=== PATIENT | male | born 1985 | race Caucasian/White ===

== ENCOUNTER 2018-12-13 22:01 | Emergency (ER) | payer SELFPAY ==
[2018-12-13] MEDS ORDERED: Ondansetron 4 MG Tab.DIS PO ONE (22:24)
--- NOTE | 2018-12-13 22:26 | EDM.PDOC ---
ED HPI GENERAL MEDICAL PROBLEM - General Chief Complaint: Respiratory Problem Stated Complaint: FLU LIKE SYMPTOMS Time Seen by Provider: 12/13/18 22:19 - History of Present Illness INITIAL COMMENTS - FREE TEXT/NARRATIVE: HISTORY AND PHYSICAL: History of present illness: The patient is a 33-year-old male who presents with history of being exposed to people with influenza and starting to have a cough last evening which was nonproductive. Today he started having left ear pain and started having a fever up to 101 this evening. He took Tylenol and Motrin prior to coming here and was on the way to the ED for evaluation. On arrival here in the ED he felt very nauseated and had an emesis while I was evaluating him of pinkish orange fluid. He said he did take NyQuil and DayQuil earlier today. He has been tolerating fluid up until this point and actually says he feels significantly improved now that he has vomited. He has no abdominal pain no diarrhea and no other GI history. Review of systems: As per history of present illness and below otherwise all systems reviewed and negative. Past medical history: As per history of present illness and as reviewed below otherwise noncontributory. Surgical history: As per history of present illness and as reviewed below otherwise noncontributory. Social history: No reported history of drug or alcohol abuse. Family history: As per history of present illness and as reviewed below otherwise noncontributory. Physical exam: General: Well-developed well-nourished man who is nontoxic and vital signs are noted by me HEENT: Atraumatic, normocephalic, pupils reactive, negative for conjunctival pallor or scleral icterus, mucous membranes moist, throat clear of exudates but there is some erythema posteriorly in the oropharynx, neck supple, nontender, trachea midline. TM on the right is within normal limits with a good light reflex and the TM on the left, the ear that is causing him the pain, is unable to be visualized due to severely impacted cerumen. Lungs: Clear to auscultation, breath sounds equal bilaterally, chest nontender. No wheezing or stridor Heart: S1S2, regular, negative for clicks, rubs, or JVD. Abdomen: Soft, nondistended, nontender. NABS Pelvis: Stable nontender. Genitourinary: Deferred. Rectal: Deferred. Extremities: Atraumatic, negative for cords or calf pain. Neurovascular unremarkable. Neuro: Awake, alert, oriented. Cranial nerves II through XII unremarkable. Cerebellum unremarkable. Motor and sensory unremarkable throughout. Exam nonfocal. Diagnostics: CBC CMP influenza rapid strep chest x-ray Therapeutics: Zofran ODT The patient has not had any nausea or vomiting here and says he feels improved. He is aware of his lab tests and a written him a prescription for Tamiflu. Impression: Influenza A Definitive disposition and diagnosis as appropriate pending reevaluation and review of above. - Related Data Allergies Allergy/AdvReac Type Severity Reaction Status Date / Time No Known Allergies Allergy Verified 12/13/18 22:24 Home Meds: Home Meds . [No Known Home Meds] 12/13/18 [History] ED ROS GENERAL - Review of Systems Review Of Systems: ROS reveals no pertinent complaints other than HPI. ED EXAM, GENERAL - Physical Exam Exam: See Below (See dictation) Course - Vital Signs Last Recorded V/S: Last Vital Signs Temp 37.2 C 12/13/18 22:19 Pulse 115 H 12/13/18 22:19 Resp 18 12/13/18 22:19 BP 119/59 L 12/13/18 22:19 Pulse Ox 95 12/13/18 22:19 - Orders/Labs/Meds Orders: Active Orders 24 hr Category Date Time Status CULTURE STREP A CONFIRMATION [RM] Stat Lab 12/13/18 22:31 Results STREP SCRN A RAPID W CULT CONF [RM] Stat Lab 12/13/18 22:31 Results Labs: Laboratory Tests 12/13/18 12/13/18 Range/Units 22:37 22:37 WBC 7.09 (4.0-11.0) K/uL RBC 4.91 (4.50-5.90) M/uL Hgb 15.3 (13.0-17.0) g/dL Hct 44.1 (38.0-50.0) % MCV 89.8 (80.0-98.0) fL MCH 31.2 (27.0-32.0) pg MCHC 34.7 (31.0-37.0) g/dL RDW Std Deviation 45.8 (28.0-62.0) fl RDW Coeff of Rosenda 14 (11.0-15.0) % Plt Count 173 (150-400) K/uL MPV 10.40 (7.40-12.00) fL Neut % (Auto) 73.6 (48.0-80.0) % Lymph % (Auto) 10.7 L (16.0-40.0) % Kinney % (Auto) 15.0 (0.0-15.0) % Eos % (Auto) 0.4 (0.0-7.0) % Baso % (Auto) 0.3 (0.0-1.5) % Neut # (Auto) 5.2 (1.4-5.7) K/uL Lymph # (Auto) 0.8 (0.6-2.4) K/uL Kinney # (Auto) 1.1 H (0.0-0.8) K/uL Eos # (Auto) 0.0 (0.0-0.7) K/uL Baso # (Auto) 0.0 (0.0-0.1) K/uL Nucleated RBC % 0.0 /100WBC Nucleated RBCs # 0 K/uL Sodium 139 (136-148) mmol/L Potassium 3.8 (3.5-5.1) mmol/L Chloride 103 (98-107) mmol/L Carbon Dioxide 23.1 (21.0-32.0) mmol/L BUN 10 (7.0-18.0) mg/dL Creatinine 1.3 (0.8-1.3) mg/dL Est Cr Clr Drug Dosing 86.88 mL/min Estimated GFR (MDRD) > 60.0 ml/min Glucose 111 H (74-106) mg/dL Calcium 8.1 L (8.5-10.1) mg/dL Total Bilirubin 0.1 L (0.2-1.0) mg/dL AST 15 (15-37) IU/L ALT 32 (14-63) IU/L Alkaline Phosphatase 56 (46-116) U/L Total Protein 7.0 (6.4-8.2) g/dL Albumin 3.6 (3.4-5.0) g/dL Globulin 3.4 (2.6-4.0) g/dL Albumin/Globulin Ratio 1.1 (0.9-1.6) Meds: Medications Discontinued Medications Generic Name Dose Route Start Last Admin Trade Name Freq PRN Reason Stop Dose Admin Ondansetron HCl 4 mg 12/13/18 22:24 12/13/18 22:29 Zofran Odt PO 12/13/18 22:25 4 mg ONETIME ONE Administration Departure - Departure Time of Disposition: 23:43 Disposition: Home, Self-Care 01 Condition: Good Clinical Impression: Influenza A - Discharge Information Forms: ED Department Discharge Additional Instructions: The following information is given to patients seen in the emergency department who are being discharged to home. This information is to outline your options for follow-up care. We provide all patients seen in our emergency department with a follow-up referral. The need for follow-up, as well as the timing and circumstances, are variable depending upon the specifics of your emergency department visit. If you don't have a primary care physician on staff, we will provide you with a referral. We always advise you to contact your personal physician following an emergency department visit to inform them of the circumstance of the visit and for follow-up with them and/or the need for any referrals to a consulting specialist. The emergency department will also refer you to a specialist when appropriate. This referral assures that you have the opportunity for followup care with a specialist. All of these measure are taken in an effort to provide you with optimal care, which includes your followup. Under all circumstances we always encourage you to contact your private physician who remains a resource for coordinating your care. When calling for followup care, please make the office aware that this follow-up is from your recent emergency room visit. If for any reason you are refused follow-up, please contact the [facility] emergency department at and ask to speak to the emergency department charge nurse. [facility] Primary care- Internal Medicine and Family [address] [address] Please use [id number] cough meds as you choose and take Tylenol and or ibuprofen for fevers as we discussed. He'll your prescription for Tamiflu as this may shorten the duration of your symptoms.. Please call and schedule a follow-up appointment in the clinic and return to ER as needed and as discussed - My Orders Last 24 Hours: My Active Orders 12/13/18 22:31 CULTURE STREP A CONFIRMATION [RM] Stat STREP SCRN A RAPID W CULT CONF [RM] Stat - Assessment/Plan Last 24 Hours: My Active Orders 12/13/18 22:31 CULTURE STREP A CONFIRMATION [RM] Stat STREP SCRN A RAPID W CULT CONF [RM] Stat
[2018-12-13 23:05] LABS: CHLORIDE,CL 103 mmol/L (98-107); SODIUM,NA 139 mmol/L (136-148)
--- NOTE | 2018-12-13 23:17 | CR ---
INDICATION: Cough, vomiting TECHNIQUE: Chest radiograph 2 views COMPARISON: None FINDINGS: Mediastinum: The mediastinum is normal in appearance. The heart silhouette is normal in size and morphology. Lung: Both lungs are unremarkable in appearance. No sign of pleural effusion seen. No pneumothorax is identified. Musculoskeletal: Unremarkable for age. IMPRESSION: 1. No acute cardiopulmonary disease is seen. Dictated by: Tone Aguirre MD @ 12/13/2018 23:15:38 (Electronically Signed)
== END 2018-12-13 23:55 | disposition home or self-care (01) ==
LOC: MW.ED 22:01
DX: J10.1 Influenza due to other identified influenza virus with other respiratory manifestations (principal)
CPT/HCPCS: 36415; 71046; 80053; 85025; 87081; 87804; 87880; 99284; A9270

== ENCOUNTER 2019-04-13 09:14 | Emergency (ER) | payer SELFPAY ==
[2019-04-13] MEDS ORDERED: Sodium Chloride 0.9% 10 ML Syringe FLUSH PRN (09:48)
[2019-04-13] MEDS ORDERED: Sodium Chloride 0.9% 2.5 ML Syringe FLUSH PRN (09:48)
--- NOTE | 2019-04-13 09:53 | EDM.PDOC ---
ED HPI GENERAL MEDICAL PROBLEM - General Chief Complaint: Abdominal Pain Stated Complaint: NEEDS CT AND LABS REF FROM [place] Time Seen by Provider: 04/13/19 09:41 - History of Present Illness INITIAL COMMENTS - FREE TEXT/NARRATIVE: HISTORY AND PHYSICAL: History of present illness: The patient is a 33-year-old male who presents from [facility] after he went there to be seen for complaints of numbness at his right abdominal wall and flank and was sent here as they felt he might need imaging and blood work. The patient says that his symptoms started about a week ago and he had some tingling and numbness at the roof of his mouth which is now gone and then he started feeling numbness at the skin area of his right flank which is now radiating around to his right upper quadrant. He says it does not go below his waist line and it starts at his lower rib cage. It does not cross to the left side and he has no back pain no abdominal pain no fevers chills nausea vomiting cough or upper respiratory symptoms and no chest pain or shortness of breath. He says the area is not painful or burning and he has not noticed any rashes. He has no weakness in his upper extremities and no weakness overall. He says he has had absolutely no discomfort with this and has had no recent trauma. He says he is doing all of his activities normally and try to make the clinic appointment and be seen as he did not think this was an emergent problem but came here at their assistance. The patient says that the symptoms do come and go and that there is no pain no burning sensation no rash no skin changes and no other symptomatology associated with it other than the feeling that the skin is "asleep" Review of systems: As per history of present illness and below otherwise all systems reviewed and negative. Past medical history: As per history of present illness and as reviewed below otherwise noncontributory. Surgical history: As per history of present illness and as reviewed below otherwise noncontributory. Social history: No reported history of drug or alcohol abuse. Family history: As per history of present illness and as reviewed below otherwise noncontributory. Physical exam: General: Well-developed well-nourished man who is nontoxic and vital signs are noted by me. He moves easily in the ED without distress HEENT: Atraumatic, normocephalic, pupils reactive, negative for conjunctival pallor or scleral icterus, mucous membranes moist, throat clear, neck supple, nontender, trachea midline. Lungs: Clear to auscultation, breath sounds equal bilaterally, chest nontender. There are no defects or deformities appreciated and no skin lesions or rashes are appreciated Heart: S1S2, regular, negative for clicks, rubs, or JVD. Abdomen: Soft, nondistended, nontender. Negative for masses or hepatosplenomegaly. Negative for costovertebral tenderness. Pelvis: Stable nontender. Genitourinary: Deferred. Rectal: Deferred. Extremities: Atraumatic, negative for cords or calf pain. Neurovascular unremarkable. Full range of motion without defects or deficits Neuro: Awake, alert, oriented. Cranial nerves II through XII unremarkable. Cerebellum unremarkable. Motor and sensory unremarkable throughout with exception of the skin at the right flank and right upper abdomen which the patient tells me has decreased sensation when compared to the left. Exam nonfocal. Back: There are no midline step-offs tenderness to get defects of the thoracic or lumbar spine and there is actually no paraspinal tenderness or abnormal lesions appreciated. Skin: Normal turgor no evidence of any rashes or lesions more specifically in the right flank and right abdominal/lower chest wall area there are no rashes or lesions and no erythema seen. Diagnostics: CBC CMP amylase lipase chest x-ray CT scan of the thoracic spine Therapeutics: IV placement 1147: TESTING results were discussed with the patient as well as the patient's provider at [facility], Dr. Lagunas. He agrees that this needs follow-up in the clinic and he is unsure of why the patient was sent over here from the clinic as he would've been happy to see the patient. We discussed doing a course of Valtrex as this may be a derivative of herpetic neuralgia without the rash of the shingles. As there are no downsides to doing some Valtrex the patient and Dr. Lagunas comfortable trialing this. If he improves this will give us a definitive diagnosis. The patient is aware that if anything changes are involved he can always return here Impression: Right flank and upper abdominal paresthesia Definitive disposition and diagnosis as appropriate pending reevaluation and review of above. - Related Data Allergies Allergy/AdvReac Type Severity Reaction Status Date / Time No Known Allergies Allergy Verified 04/13/19 09:30 Home Meds: Home Meds . [No Known Home Meds] 12/13/18 [History] Past Medical History - Past Health History Medical/Surgical History: Denies Medical/Surgical History Social & Family History - Family History Family Medical History: Noncontributory - Tobacco Use Smoking Status *Q: Current Every Day Smoker Years of Tobacco use: 15 Packs/Tins Daily: 1.5 - Caffeine Use Caffeine Use: Reports: Coffee, Energy Drinks - Recreational Drug Use Recreational Drug Use: No ED ROS GENERAL - Review of Systems Review Of Systems: ROS reveals no pertinent complaints other than HPI. ED EXAM, GENERAL - Physical Exam Exam: See Below (See dictation) Course - Vital Signs Last Recorded V/S: Last Vital Signs Temp 36.7 C 04/13/19 09:27 Pulse 79 04/13/19 09:27 Resp 18 04/13/19 09:27 BP 123/86 04/13/19 09:27 Pulse Ox 97 04/13/19 09:27 - Orders/Labs/Meds Orders: Active Orders 24 hr Category Date Time Status Chest 1V Frontal [CR] Stat Exams 04/13/19 09:49 Taken Thoracic Spine wo Cont [CT] Stat Exams 04/13/19 09:48 Taken Sodium Chloride 0.9% [Saline Flush] Med 04/13/19 09:48 Active 10 ml FLUSH ASDIRECTED PRN Sodium Chloride 0.9% [Saline Flush] Med 04/13/19 09:48 Active 2.5 ml FLUSH ASDIRECTED PRN Saline Lock Insert [OM.PC] Stat Oth 04/13/19 09:48 Ordered Medication Orders Sodium Chloride (Saline Flush) 10 ml FLUSH ASDIRECTED PRN PRN Reason: Keep Vein Open Last Admin: 04/13/19 10:00 Dose: 10 ml Sodium Chloride (Saline Flush) 2.5 ml FLUSH ASDIRECTED PRN PRN Reason: Keep Vein Open Last Admin: 04/13/19 10:01 Dose: 2.5 ml Labs: Laboratory Tests 04/13/19 04/13/19 Range/Units 09:55 09:55 WBC 9.54 (4.0-11.0) K/uL RBC 5.38 (4.50-5.90) M/uL Hgb 16.7 (13.0-17.0) g/dL Hct 48.6 (38.0-50.0) % MCV 90.3 (80.0-98.0) fL MCH 31.0 (27.0-32.0) pg MCHC 34.4 (31.0-37.0) g/dL RDW Std Deviation 45.7 (28.0-62.0) fl RDW Coeff of Rosenad 14 (11.0-15.0) % Plt Count 245 (150-400) K/uL MPV 10.10 (7.40-12.00) fL Neut % (Auto) 60.5 (48.0-80.0) % Lymph % (Auto) 27.5 (16.0-40.0) % Collier % (Auto) 8.8 (0.0-15.0) % Eos % (Auto) 3.0 (0.0-7.0) % Baso % (Auto) 0.2 (0.0-1.5) % Neut # (Auto) 5.8 H (1.4-5.7) K/uL Lymph # (Auto) 2.6 H (0.6-2.4) K/uL Collier # (Auto) 0.8 (0.0-0.8) K/uL Eos # (Auto) 0.3 (0.0-0.7) K/uL Baso # (Auto) 0.0 (0.0-0.1) K/uL Nucleated RBC % 0.0 /100WBC Nucleated RBCs # 0 K/uL Sodium 143 (136-148) mmol/L Potassium 4.4 (3.5-5.1) mmol/L Chloride 107 (98-107) mmol/L Carbon Dioxide 24.7 (21.0-32.0) mmol/L BUN 14 (7.0-18.0) mg/dL Creatinine 1.0 (0.8-1.3) mg/dL Est Cr Clr Drug Dosing 112.95 mL/min Estimated GFR (MDRD) > 60.0 ml/min Glucose 97 (74-106) mg/dL Calcium 9.1 (8.5-10.1) mg/dL Total Bilirubin 0.1 L (0.2-1.0) mg/dL AST 12 L (15-37) IU/L ALT 42 (14-63) IU/L Alkaline Phosphatase 60 (46-116) U/L Total Protein 7.2 (6.4-8.2) g/dL Albumin 4.0 (3.4-5.0) g/dL Globulin 3.2 (2.6-4.0) g/dL Albumin/Globulin Ratio 1.3 (0.9-1.6) Amylase 42 (25-115) U/L Lipase 135 (73-393) U/L Meds: Medications Generic Name Dose Route Start Last Admin Trade Name Freq PRN Reason Stop Dose Admin Sodium Chloride 10 ml 04/13/19 09:48 04/13/19 10:00 Saline Flush FLUSH 10 ml ASDIRECTED PRN Administration Keep Vein Open Sodium Chloride 2.5 ml 04/13/19 09:48 04/13/19 10:01 Saline Flush FLUSH 2.5 ml ASDIRECTED PRN Administration Keep Vein Open Departure - Departure Time of Disposition: 11:53 Disposition: Home, Self-Care 01 Condition: Good Clinical Impression: Paresthesia - Discharge Information Referrals: Chris Lagunas MD [Primary Care Provider] - Forms: ED Department Discharge Additional Instructions: The following information is given to patients seen in the emergency department who are being discharged to home. This information is to outline your options for follow-up care. We provide all patients seen in our emergency department with a follow-up referral. The need for follow-up, as well as the timing and circumstances, are variable depending upon the specifics of your emergency department visit. If you don't have a primary care physician on staff, we will provide you with a referral. We always advise you to contact your personal physician following an emergency department visit to inform them of the circumstance of the visit and for follow-up with them and/or the need for any referrals to a consulting specialist. The emergency department will also refer you to a specialist when appropriate. This referral assures that you have the opportunity for followup care with a specialist. All of these measure are taken in an effort to provide you with optimal care, which includes your followup. Under all circumstances we always encourage you to contact your private physician who remains a resource for coordinating your care. When calling for followup care, please make the office aware that this follow-up is from your recent emergency room visit. If for any reason you are refused follow-up, please contact the [facility] emergency department at and ask to speak to the emergency department charge nurse. [facility] [address] [place] [address] [place] [address] Please take medications, Valtrex, as prescribed and continue to monitor his symptoms. Please contact [facility] and schedule a follow-up appointment with your provider, specifically telling them that you're here in the ER and your provider was contacted and does want to follow you up. Return to ER as needed and as discussed. If for any reason rash appears please avoid contact with women older individuals and young children into your seen in the clinic. - My Orders Last 24 Hours: My Active Orders 04/13/19 09:48 Thoracic Spine wo Cont [CT] Stat Sodium Chloride 0.9% [Saline Flush] 10 ml FLUSH ASDIRECTED PRN Sodium Chloride 0.9% [Saline Flush] 2.5 ml FLUSH ASDIRECTED PRN Saline Lock Insert [OM.PC] Stat 04/13/19 09:49 Chest 1V Frontal [CR] Stat - Assessment/Plan Last 24 Hours: My Active Orders 04/13/19 09:48 Thoracic Spine wo Cont [CT] Stat Sodium Chloride 0.9% [Saline Flush] 10 ml FLUSH ASDIRECTED PRN Sodium Chloride 0.9% [Saline Flush] 2.5 ml FLUSH ASDIRECTED PRN Saline Lock Insert [OM.PC] Stat 04/13/19 09:49 Chest 1V Frontal [CR] Stat
[2019-04-13 10:39] LABS: BLOOD UREA NITROGEN,BUN 14 mg/dL (7.0-18.0); CARBON DIOXIDE,CO2 24.7 mmol/L (21.0-32.0); CHLORIDE,CL 107 mmol/L (98-107); GLUCOSE RANDOM 97 mg/dL (74-106); LIPASE 135 U/L (73-393); POTASSIUM,K 4.4 mmol/L (3.5-5.1); SODIUM,NA 143 mmol/L (136-148)
--- NOTE | 2019-04-13 11:57 | CT ---
EXAM DATE: 04/13/19 PATIENT'S AGE: 33 Patient: NATHAN POLK Facility: [facility] Site . Site : 1985 Study: CT-Spine Thoracic [id number]/1/2019 10:32:15 AM Ordering Physician: Jhonny Soto Final Report: INDICATION: Numbness in the waist. Comparison: None. TECHNIQUE: CT thoracic spine without intravenous contrast; coronal and sagittal reformats. FINDINGS: No evidence of fracture or dislocation involving the thoracic spine. The intervertebral disc spaces are well preserved and fail to reveal any abnormalities. No abnormal paraspinal soft tissue mass densities. No evidence of pneumothorax or pleural effusion. IMPRESSION: Negative CT thoracic spine without intravenous contrast. Please note that all CT scans at this facility use dose modulation, iterative reconstruction, and/or weight-based dosing when appropriate to reduce radiation dose to as low as reasonably achievable. Dictated by Camilla Ramirez MD @ Apr 13 2019 11:16AM Signed by: Camilla Ramirez MD @04/13/2019 11:20:14 AM (Electronic Signature) Report Signed by Proxy. [facility] HOSPITALStalin
--- NOTE | 2019-04-13 11:58 | CR ---
EXAM DATE: 04/13/19 PATIENT'S AGE: 33 Patient: NATHAN POLK Facility: [facility] Site Site : 1985 Study: XRay-Chest [id number]/1/2019 10:35:29 AM Ordering Physician: ADINA Final Report: INDICATION: Chest pain. COMPARISON: Chest radiograph December 13, 2018. TECHNIQUE: Single AP radiograph of the chest. FINDINGS: Normal size cardiac silhouette. Clear lung barber with no evidence of acute pneumonic infiltrates or CHF. No pneumothorax or pleural effusion. Impression: Negative chest. Dictated by Camilla Ramirez MD @ Apr 13 2019 11:20AM Signed by: Camilla Ramirez MD @04/13/2019 11:22:21 AM (Electronic Signature) Report Signed by Proxy. [facility]
== END 2019-04-13 12:14 | disposition home or self-care (01) ==
LOC: MW.ED 09:14
DX: R20.2 Paresthesia of skin (principal); F17.210 Nicotine dependence, cigarettes, uncomplicated
CPT/HCPCS: 36415; 71045; 71045-26; 72128; 72128-26; 80053; 82150; 83690; 85025; 99284; 99284-25

== ENCOUNTER 2019-11-10 18:41 | Emergency (ER) | payer BC, OTHER ==
--- NOTE | 2019-11-10 19:08 | EDM.PDOC ---
ED HPI GENERAL MEDICAL PROBLEM - General Chief Complaint: Lower Extremity Injury/Pain Stated Complaint: LEFT FOOT HURTS Time Seen by Provider: 11/10/19 19:06 Source of Information: Reports: Patient History Limitations: Reports: No Limitations - History of Present Illness INITIAL COMMENTS - FREE TEXT/NARRATIVE: This is a 34-year-old male who presents the emergency room with a chief complaint of left foot pain. Patient states that he has pain on the move his foot with walking. The patient denies any history of trauma. The patient denies any history of new shoes or different exercise regiment. Has no medical problems. Has no previous injuries to the foot. He has no history of gout or arthritis Duration: Day(s): (2), Recurring Location: Reports: Lower Extremity, Left Quality: Reports: Ache Severity: Moderate Worsens with: Reports: None Associated Symptoms: Reports: No Other Symptoms left foot Pain Score (Numeric/FACES): 4 - Related Data Allergies Allergy/AdvReac Type Severity Reaction Status Date / Time No Known Allergies Allergy Verified 11/10/19 19:00 Home Meds: Home Meds . [No Known Home Meds] 12/13/18 [History] Past Medical History - Past Health History Medical/Surgical History: Denies Medical/Surgical History Social & Family History - Family History Family Medical History: Noncontributory - Tobacco Use Smoking Status *Q: Current Every Day Smoker Years of Tobacco use: 15 Packs/Tins Daily: 1.5 - Caffeine Use Caffeine Use: Reports: Coffee, Energy Drinks - Recreational Drug Use Recreational Drug Use: No Review of Systems - Review of Systems Review Of Systems: See Below Constitutional: Reports: No Symptoms. Denies: Chills, Diaphoresis Eyes: Reports: No Symptoms. Denies: Blindness, Blurred Vision, Foreign Body Sensation Ears: Reports: No Symptoms. Denies: Dizziness, Pain Nose: Reports: No Symptoms. Denies: Clots, Congestion, Epistaxis Mouth/Throat: Reports: No Symptoms. Denies: Bleeding, Clots, Lip Swelling Respiratory: Reports: No Symptoms. Denies: Shortness of Breath, Wheezing Cardiovascular: Reports: No Symptoms. Denies: Chest Pain, Edema GI/Abdominal: Reports: No Symptoms. Denies: Abdominal Pain, Bloody Stool Genitourinary: Reports: No Symptoms. Denies: Dysuria, Hematuria, Incontinence Musculoskeletal: Reports: Foot Pain, Other. Denies: Neck Pain, Shoulder Pain Skin: Reports: No Symptoms. Denies: Cyanosis, Jaundice Neurological: Reports: No Symptoms. Denies: Confusion, Dizziness, Headache Psychiatric: Reports: No Symptoms. Denies: Confusion, Depression, Mood Lability ED EXAM, GENERAL - Physical Exam Exam: See Below Free Text/Narrative:: 34 male presents the emergency room chief complaint of the bottom of his left foot hurting. He says no trauma no previous injuries no swelling no pain no fever no chills General Appearance: Alert, WD/WN Course - Vital Signs Text/Narrative:: Patient has normal x-rays. Willam exhibited pain in the bottom part of his foot when he ambulated. I feel this patient has a plantar fasciitis given Toradol in the emergency room for pain control and will be discharged on Motrin and short dose of steroids. Follow-up with child care counselor Last Recorded V/S: Last Vital Signs Temp 97.9 F 11/10/19 18:57 Pulse 104 H 11/10/19 18:57 Resp 16 11/10/19 18:57 BP 134/73 11/10/19 18:57 Pulse Ox 96 11/10/19 18:57 - Orders/Labs/Meds Meds: Medications Discontinued Medications Generic Name Dose Route Start Last Admin Trade Name Lila PRN Reason Stop Dose Admin Ketorolac Tromethamine 60 mg 11/10/19 19:58 11/10/19 20:06 Toradol IM 11/10/19 19:59 60 mg ONETIME ONE Administration Departure - Departure Time of Disposition: 20:27 Disposition: Home, Self-Care 01 Condition: Good Clinical Impression: Plantar fasciitis of left foot - Discharge Information Referrals: PCP,None [Primary Care Provider] - Forms: ED Department Discharge Sepsis Event Note - Evaluation Sepsis Screening Result: No Definite Risk - Focused Exam Vital Signs: Vital Signs Temp Pulse Resp BP Pulse Ox 11/10/19 18:57 97.9 F 104 H 16 134/73 96 Date Exam was Performed: 11/10/19 Time Exam was Performed: 20:26
--- NOTE | 2019-11-10 19:39 | CR ---
Left foot: 2 views of the left foot were obtained. Comparison: No prior foot exam is available. Joint spaces are preserved. No fracture or other bony abnormality is identified. Impression: 1. No abnormality is appreciated on 2 view left foot study. Diagnostic code #1 This report was dictated in Mountain Standard Time
[2019-11-10] MEDS ORDERED: Ketorolac 60 MG/2 ML SDV IM ONE (19:58)
== END 2019-11-10 20:44 | disposition home or self-care (01) ==
LOC: MW.ED 18:41
DX: M72.2 Plantar fascial fibromatosis (principal); F17.210 Nicotine dependence, cigarettes, uncomplicated
CPT/HCPCS: 73620; 96372; 99283; J1885; 99282

== ENCOUNTER 2020-10-02 17:40 | Emergency (ER) | payer SELFPAY ==
--- NOTE | 2020-10-02 18:21 | EDM.PDOC ---
ED HPI GENERAL MEDICAL PROBLEM - General Chief Complaint: Upper Extremity Injury/Pain Stated Complaint: SPRINED LEFT HAND Time Seen by Provider: 10/02/20 17:46 Source of Information: Reports: Patient History Limitations: Reports: No Limitations - History of Present Illness INITIAL COMMENTS - FREE TEXT/NARRATIVE: HISTORY AND PHYSICAL: History of present illness: Patient is a 35-year-old male who presents to the ED with complaints of left wrist pain. He states he was getting out of his truck when he slipped on the ice and fell on his left wrist around 2 PM today. He states the pain has been getting worse since his fall at 2 PM. He denies hitting his head or any loss of consciousness. He denies any other extremity involvement. He offers no systemic complaints. Review of systems: As per history of present illness and below otherwise all systems reviewed and negative. Past medical history: As per history of present illness and as reviewed below otherwise noncont ributory. Surgical history: As per history of present illness and as reviewed below otherwise noncontributory. Social history: See social history for further information Family history: As per history of present illness and as reviewed below otherwise noncontributory. Physical exam: General: Well developed and well nourished. Alert and orientated x 3. Nontoxic in appearance and in no acute distress. Vital signs are stable and have been reviewed by me. Nursing notes were reviewed. HEENT: Atraumatic, normocephalic, pupils equal and reactive bilaterally, negative for conjunctival pallor or scleral icterus, mucous membranes moist, TMs normal bilaterally, throat clear, neck supple, nontender, trachea midline. No drooling or trismus noted. No meningeal signs. No hot potato voice noted. Lungs: Clear to auscultation bilaterally. No wheezes, rales, or rhonchi. Chest nontender. Normal work of breathing, no accessory muscles used. Heart: S1S2, regular rate and rhythm without overt murmur, gallops, or rubs. No JVD. No peripheral edema Abdomen: Soft, nondistended, nontender. Normoactive bowel sounds. Negative for masses or costovertebral tenderness. Pelvis: Stable nontender. Genitourinary/Rectal: Deferred. Skin: Superficial abrasion noted to the dorsal aspect of the left wrist. Otherwise remaining skin is intact, warm, dry. No lesions or rashes noted. Hematologic: No petechiae or purpra. Mucosa appropriate color and normal nail bed color and refill. Extremities: Swelling and tenderness to palpation noted to left wrist, forearm, and daniels surface of the hand. Good flexion and extension of the fingers and wrist. Strong radial pulse. Cap refill less than 3 seconds. Neurovascular unremarkable. Neuro: Awake, alert, oriented. Cranial nerves II through XII unremarkable. Ce rebellum unremarkable. Motor and sensory unremarkable throughout. Exam nonfocal. Psychiatric: Mood and affect are appropriate. Normal thought process. Answering questions appropriately. Notes: *This patient was seen and evaluated during the 2019 SARS-CoV-2 novel coronavirus pandemic period. Community viral transmission is ongoing at time of this encounter and the emergency department is operating under pandemic response procedures. X-ray shows no acute abnormality. I have talked with the patient about today's findings, in addition to providing specific details for plan of care. Will provide patient with a wrist splint for comfort. To wear over the next 2-3 days for immobilization. Reassessment at the time of disposition demonstrates that the patient is in no acute distress. The patient is stable for discharge, counseling was provided and we discussed in great detail signs and symptoms that would prompt them to return to the Emergency Department. Medication, follow up and supportive care measures were reviewed and discussed. Voices understanding and is agreeable to plan of care. Denies any further questions or concerns at this time. Diagnostics: X-ray Therapeutics: Wrist splint Prescription: Diclofenac Impression: Wrist Sprain, Left Fall Plan: 1. X-ray shows no fractures. Rest, ice, elevate the affected extremity. Please wear the splint as directed. 2. Tylenol and/or Ibuprofen as needed for pain management. 3. Follow up with the Orthopedic provider as we discussed. Return to the ED as needed and as discussed. Definitive disposition and diagnosis as appropriate pending reevaluation and review of above. Left Wrist Pain Score (Numeric/FACES): 5 - Related Data Allergies Allergy/AdvReac Type Severity Reaction Status Date / Time No Known Allergies Allergy Verified 10/02/20 18:01 Home Meds: Home Meds . [No Known Home Meds] 10/02/20 [History] Past Medical History - Past Health History Medical/Surgical History: Denies Medical/Surgical History - Infectious Disease History Infectious Disease History: Reports: Chicken Pox Social & Family History - Family History Family Medical History: No Pertinent Family History - Tobacco Use Tobacco Use Status *Q: Current Every Day Tobacco User Years of Tobacco use: 10 Packs/Tins Daily: 1 - Caffeine Use Caffeine Use: Reports: Coffee - Recreational Drug Use Recreational Drug Use: No Review of Systems - Review of Systems Review Of Systems: Comprehensive ROS is negative, except as noted in HPI. ED EXAM, GENERAL - Physical Exam Exam: See Below (See dictation) Course - Vital Signs Last Recorded V/S: Last Vital Signs Temp 98 F 10/02/20 18:01 Pulse 106 H 10/02/20 18:01 Resp 16 10/02/20 18:01 BP 125/75 10/02/20 18:01 Pulse Ox 95 10/02/20 18:01 Departure - Departure Time of Disposition: 19:14 Disposition: Home, Self-Care 01 Clinical Impression: Left wrist sprain Qualifiers: Encounter type: initial encounter Qualified Code(s): S63.502A - Unspecified sprain of left wrist, initial encounter Fall Qualifiers: Encounter type: initial encounter Qualified Code(s): W19.XXXA - Unspecified fall, initial encounter - Discharge Information Instructions: Wrist Sprain, Adult Referrals: Chris Lagunas MD [Primary Care Provider] - Forms: ED Department Discharge Additional Instructions: The following information is given to patients seen in the emergency department who are being discharged to home. This information is to outline your options for follow-up care. We provide all patients seen in our emergency department with a follow-up referral. The need for follow-up, as well as the timing and circumstances, are variable depending upon the specifics of your emergency department visit. If you don't have a primary care physician on staff, we will provide you with a referral. We always advise you to contact your personal physician following an emergency department visit to inform them of the circumstance of the visit and for follow-up with them and/or the need for any referrals to a consulting specialist. The emergency department will also refer you to a specialist when appropriate. This referral assures that you have the opportunity for follow-up care with a specialist. All of these measure are taken in an effort to provide you with optimal care, which includes your follow-up. Under all circumstances we always encourage you to contact your private physician who remains a resource for coordinating your care. When calling for follow-up care, please make the office aware that this follow-up is from your recent emergency room visit. If for any reason you are refused follow-up, please contact the [facility] at and asked to speak to the emergency department charge nurse. [facility] [address] [place] [address] [facility] [address] [place] [address] Thank you for choosing the [facility] emergency department in [place] for your medical needs today. It was a pleasure caring for you. Today you were seen in the emergency department for left upper extremity injury post fall. 1. X-ray shows no fractures. Rest, ice, elevate the affected extremity. Please wear the splint as directed. 2. Tylenol and/or Ibuprofen as needed for pain management. 3. Follow up with the Orthopedic provider as we discussed. Return to the ED as needed and as discussed. Sepsis Event Note (ED) - Evaluation Sepsis Screening Result: No Definite Risk - Focused Exam Vital Signs: Vital Signs Temp Pulse Resp BP Pulse Ox 10/02/20 18:01 98 F 106 H 16 125/75 95
--- NOTE | 2020-10-02 18:57 | CR ---
INDICATION: Trauma. COMPARISON: None. TECHNIQUE: Three views of the left wrist. FINDINGS: Normal osseous mineralization and alignment. No acute fracture dislocation. Joint spaces are preserved. Soft tissues are unremarkable. IMPRESSION: No acute osseous abnormality. Dictated by Cliff Hidalgo MD @ 10/02/2020 6:56:19 PM Dictated by: Cliff Hidalgo MD @ 10/02/2020 18:56:26 (Electronically Signed)
== END 2020-10-02 19:39 | disposition home or self-care (01) ==
LOC: MW.ED 17:40
DX: S63.502A Unspecified sprain of left wrist, initial encounter (principal); Z72.0 Tobacco use; W00.0XXA Fall on same level due to ice and snow, initial encounter
CPT/HCPCS: 73130-26-LT; 73130-LT; 99282; 99283